=== PATIENT | female | born 1990 | race Caucasian/White ===

== ENCOUNTER → 2019-12-12 | Outpatient (CLI) | payer OTHER ==
--- NOTE | 2019-12-12 10:50 | Diagnostic Imaging Report ---
PROCEDURE: CT lumbar spine without contrast. TECHNIQUE: Multiple contiguous axial images were obtained through the lumbar spine without the use of intravenous contrast. Sagittal and coronal reformations were then performed. Auto Exposure Controls were utilized during the CT exam to meet ALARA standards for radiation dose reduction. INDICATION: Fall with low back pain. No relevant comparison. Reconstruction views reveal the lumbar statures to be normal and aligned anatomically. The pedicles and pars were intact and there was no acute or chronic fracture pattern. There is degenerative narrowing of the L5-S1 disc space with a diffuse posterior disc bulge as well as endplate osteophytes, which in conjunction with thickening of the ligament flava, result in moderate to severe central canal stenosis and relatively mild biforaminal narrowing. More mild diffuse annular degenerative bulging of the L4-L5 disc results in a borderline mild canal and mild foraminal stenosis. The remaining levels normal. The sacral alar and SI joints appeared nonacute. No paravertebral mass, hemorrhage or fluid collection. IMPRESSION: 1. No fracture or malalignment. There is lower lumbar spondylosis and facet arthrosis resulting in severe canal stenosis at L5-S1 without mild to moderate bi-foraminal narrowing. 2. No acute or posttraumatic sequelae however identified. Dictated by: Dictated on workstation # [id number]
== END ==
LOC: RAD FS 09:43
PROVIDERS: ATTEND Nurse Practitioner Family
DX: S39.92XA Unspecified injury of lower back, initial encounter (principal); M47.816 Spondylosis without myelopathy or radiculopathy, lumbar region; M48.07 Spinal stenosis, lumbosacral region; W19.XXXA Unspecified fall, initial encounter
CPT/HCPCS: 72131

== ENCOUNTER 2020-08-06 06:26 | Outpatient (RCR) | payer OTHER ==
[~2020-08-06] VITALS: Ht 170.2 cm; Wt 97.3 kg
[2020-08-06] MEDS ORDERED: CLON0.5T PO (12:51)
[2020-08-06] MEDS ORDERED: CITA40TA19 PO (13:10)
[2020-08-06] MEDS ORDERED: PANT20TA2 PO (13:10)
[2020-08-06] MEDS ORDERED: LEVO112C4 PO (13:10)
== END 2020-08-06 14:18 | disposition home or self-care (01) ==
LOC: PREOP 06:26
PROVIDERS: ATTEND Obstetrics & Gynecology
DX: Z01.812 Encounter for preprocedural laboratory examination (principal); N93.9 Abnormal uterine and vaginal bleeding, unspecified; N92.0 Excessive and frequent menstruation with regular cycle

== ENCOUNTER 2020-08-13 07:51 | Day surgery (SDC) | payer OTHER ==
[2020-08-13] VITALS (11 sets, daily range): BP systolic 111–129; BP diastolic 59–86
[~2020-08-13] VITALS: Ht 170 cm; Wt 97.3 kg
[~2020-08-13 07:51] MED LIST: CITA40TA19 PO; CLON0.5T PO; LEVO112C4 PO; PANT20TA2 PO
[2020-08-13] MEDS ORDERED: ceFAZolin 2 GM IV Premixed 50 ML IV ONE (08:15)
[2020-08-13] MEDS ORDERED: metroNIDAZOLE 500MG/100ML IVPB 100 ML IV ONE (08:15)
[2020-08-13] MEDS ORDERED: CATHETER FLUSH 10 ML SYR IV PRN (08:30)
[2020-08-13 08:35] LABS: BASOPHILS % (AUTO) 1 % (0-10); EOSINOPHILS % (AUTO) 1 % (0-10); HEMATOCRIT 40 % (35-52); LYMPHOCYTES # (AUTO) 1.3 10^3/uL (1.0-4.0); LYMPHOCYTES % (AUTO) 28 % (12-44); MEAN CORPUSCULAR HEMOGLOBIN 29 pg (25-34); MEAN CORPUSCULAR HGB CONC 33 g/dL (32-36); MEAN CORPUSCULAR VOLUME 89 fL (80-99); MEAN PLATELET VOLUME 9.1 fL (9.0-12.2); MONOCYTES # (AUTO) 0.4 10^3/uL (0.0-1.0); MONOCYTES % (AUTO) 8 % (0-12); NEUTROPHILS # (AUTO) 2.9 10^3/uL (1.8-7.8); NEUTROPHILS % (AUTO) 63 % (42-75); PLATELET COUNT 278 10^3/uL (130-400); WHITE BLOOD COUNT 4.6 10^3/uL (4.3-11.0)
[2020-08-13] MEDS ORDERED: ONDANSETRON 4 MG/2 ML (SDV) Z0FRAN ONE ×3 (08:35→13:26)
[2020-08-13] MEDS: LACTATED RINGERS 1,000 ML IV PRN ×3 (08:35→12:37)
[2020-08-13] MEDS ORDERED: FAMOTIDINE 20MG/2ML IV (PEPCID) ONE (08:36)
[2020-08-13] MEDS ORDERED: ONDANSETRON 4 MG/2 ML (SDV) Z0FRAN IVP ONE (08:45)
[2020-08-13] MEDS ORDERED: FAMOTIDINE 20MG/2ML IV (PEPCID) IVP ONE (08:45)
[2020-08-13] MEDS ORDERED: SEVOFLURANE (ULTANE) 15 ML INHAL SOLN ONE ×6 (10:52→13:03)
[2020-08-13] MEDS ORDERED: LIDOCAINE PF 2% 5 ML (XYLOCAINE) VIAL ONE (10:52)
[2020-08-13] MEDS ORDERED: MIDAZOLAM 2 MG/2 ML (VERSED) VIAL ONE (10:52)
[2020-08-13] MEDS ORDERED: proPOfol 200 MG/20 ML (DIPRIVAN) VIAL IV ONE (10:52)
[2020-08-13] MEDS ORDERED: ROCURONIUM 10 MG/ML 5 ML SYRINGE IV ONE (10:52)
[2020-08-13] MEDS ORDERED: fentaNYL INJECTION 100 MCG/2 ML AMP ONE (10:52)
[2020-08-13] MEDS ORDERED: BUPIVACAINE 0.25% 30 ML (SENSORCAINE) VIAL ONE (11:13)
[2020-08-13] MEDS ORDERED: SIMETHICONE 80 MG (MYLICON) CHEW PO PRN (11:15)
[2020-08-13] MEDS ORDERED: ZOLPIDEM 5 MG (AMBIEN) TAB PO PRN (11:15)
[2020-08-13] MEDS ORDERED: LACTATED RINGERS 1,000 ML IV SCH (11:15)
[2020-08-13] MEDS ORDERED: CHLORASEPTIC LOZENGE MM PRN (11:15)
[2020-08-13] MEDS ORDERED: DOCUSATE SODIUM 100 MG (COLACE) CAP PO PRN (11:15)
[2020-08-13] MEDS ORDERED: ANTACID SUSP 30 ML UDC (MYLANTA) PO PRN (11:15)
[2020-08-13] MEDS ORDERED: ONDANSETRON 4 MG/2 ML (SDV) Z0FRAN IV PRN (11:15)
[2020-08-13] MEDS ORDERED: HYDROmorphone 2 MG/ML VIAL (DILAUDID) IV ONE (13:30)
[2020-08-13] MEDS ORDERED: morphine INJ 10 MG/ML 1ML (SYR OR VIAL) IVP ONE (13:30)
[2020-08-13] MEDS: ONDANSETRON 4 MG/2 ML (SDV) Z0FRAN IVP PRN ×2 (13:31→14:35)
[2020-08-13] MEDS ORDERED: KETOROLAC 30 MG/ML VIAL ONE (14:02)
[2020-08-13] MEDS: KETOROLAC 30 MG/ML VIAL IV PRN ×2 (14:07→20:39)
--- NOTE | 2020-08-13 18:11 | OPERATIVE REPORT ---
DATE OF SERVICE: PREOPERATIVE DIAGNOSIS: A 30-year-old female with abnormal uterine bleeding refractory to medical management. PREOPERATIVE DIAGNOSIS: A 30-year-old female with abnormal uterine bleeding refractory to medical management. PROCEDURE: Robotic-assisted total laparoscopic hysterectomy with bilateral salpingectomy. SURGEON: Godwin Mancini DO FILTER TANK TENDER HELPER HEAD: Marysol Chavez DNP, who was necessary for manipulation and retraction throughout the procedure. ANESTHESIA: General. ESTIMATED BLOOD LOSS: Minimal. URINE OUTPUT: 350 mL clear at the end of the procedure. FLUIDS: 2100 mL lactated Ringer's solution. FINDINGS: Mild serosal adhesions of the uterus; otherwise, it was hyperemic and slightly bulky, but grossly normal otherwise bilateral normal appearing fallopian tubes and ovaries, normal appearing external female genitalia. SPECIMEN SENT: Uterus, bilateral fallopian tubes. INDICATIONS FOR PROCEDURE: This 30-year-old female is a patient who was a consultation in my office for ongoing issues with heavy painful periods that have continued to occur despite conservative management. She had been on oral contraceptive pills, Depo-Provera, has had two IUDs be dispelled during the timeframe of trying to treat this heavy bleeding. She does not desire any further childbearing and does not had a tubal sterilization and prefer not to attempt an endometrial ablation due to its potential for failure rate. She is frustrated and wishes to proceed with robotic hysterectomy. Risks of the procedure were discussed with the patient in detail. After all of her questions were answered and a consent was obtained in the preoperative area and the patient was taken to the operating room. OPERATIVE REPORT IN DETAIL: Once in the operating room, general anesthesia was found to be adequate, placed in dorsal lithotomy position, prepped and draped in normal sterile fashion where a timeout was performed. Bedoya catheter was placed using sterile technique. A weighted speculum was inserted into the patient's vagina. A right angle retractor was used to visualize the cervix, which was grasped at 12 o'clock position using a long Allis clamp. I then placed an 0 Vicryl suture through the anterior lip of the cervix and gently sound the uterine cavity depth using a uterine sound and found to be 8 cm. Using the suture now as my retraction point on the cervix, I placed a Sandra uterine manipulator to a depth of 8 cm with a 3.5 cm colpotomy ring. The manipulator tip was advanced into the cervix, the balloon was deployed and the colpotomy ring was advanced around the vaginal fornix. I removed all the other instruments from the patient's vagina, performed a change of gloves and took my attention to the abdomen where infraumbilically I infiltrated this area using 0.25% Marcaine to make an 8 mm incision with a knife and directed Veress needle through the incision until intraperitoneal placement was confirmed using saline drop test. An opening pressure of 2 mmHg was noted. I proceeded to maximum pressure of 15 mmHg, at which point I removed the Veress needle and introduced an 8 mm blunt laparoscopic da Anthony camera trocar. Once this was in place, I am able to confirm intraperitoneal placement using the da Anthony laparoscope. I then had the patient placed in steep Trendelenburg after briefly scanning the upper abdominal anatomy appears to be grossly normal. Once in steep Trendelenburg, I placed the two lateral trocars. These were both 8 mm trocars approximately 8 cm lateral to my infraumbilical trocar. Once these were both in place under direct visualization and laparoscope by bringing the da Anthony robot and docked in appropriate fashion placing the vessel sealer in the left hand and monopolar medina in the right hand, I performed the following dissection bilaterally starting at the uteroovarian ligament, I bipolar cauterized and transected using vessel sealer. I then created a window in the mesosalpinx. I bipolar cauterized and transected down the mesosalpinx amputating the fallopian tube from its surrounding blood supply. I then grasped the round ligament, which I bipolar cauterized and transected using vessel sealer. I then grasped the entire broad ligament, which I bipolar cauterized and transected using vessel sealer down to the level of the lower uterine segment, at which point I the anterior and posterior leaflets of the broad ligament, anterior leaflet was taken around the anterior vaginal fornix, posterior leaflet was taken around to the posterior vaginal fornix. This allows me to skeletonize the uterine vessels laterally, which I then bipolar cauterized and transected using the vessel sealer. I then created a colpotomy at 12 o'clock position using monopolar medina and took this circumferentially around the vaginal fornix amputating the cervix away from the vagina. I then removed the entire cervix, uterus, bilateral fallopian tubes through the vagina. I proceeded with closing the lateral vaginal apices and the vaginal cuff using 2-0 Vicryl suture in a [id number] fashion colposuspending them to the uterosacral ligaments. I then closed the remainder of the vaginal cuff using 2-0 V-Loc in a running fashion, after which there was no active bleeding noted from any of my dissection planes. I then undocked the da Anthony robot and proceeded with remainder of the case laparoscopically and copiously irrigated the pelvis using normal saline. Once again, there was no active bleeding noted from any of my dissection planes. I placed Surgiflo hemostatic agent over all my planes of dissection to ensure excellent postoperative hemostasis. I then had the patient taken out of steep Trendelenburg where I removed the lateral trocars under direct visualization of laparoscope. The infraumbilical trocar was left in place to release insufflation and to introduce 10 mL of 0.25% Marcaine into the peritoneal cavity for postoperative pain management. I then removed this trocar as well. The skin was reapproximated using 4-0 Monocryl interrupted subcuticular stitches. Dermabond was applied to the incision and sterile dressings were adhesed over the incisions as well. Bedoya catheter was left in place. The patient tolerated the procedure well and was taken to recovery area in stable condition. Lap and sponge counts were correct at the end of procedure. Instrument counts correct as well. Two grams of Ancef, 500 mg of Flagyl were given preoperatively for infection prophylaxis. Job ID: [id number] DocumentID: [id number] Dictated Date: 08/13/2020 13:15:26 Cafeteria Director Date: 08/13/2020 18:10:58 Dictated By: GODWIN MANCINI DO
[2020-08-13] MEDS: HYDROcodone/APAP 7.5 MG/325 MG (LORTAB, LORCET PLUS) TABLET PO PRN (18:29)
[2020-08-14] MEDS: HYDROcodone/APAP 7.5 MG/325 MG (LORTAB, LORCET PLUS) TABLET PO PRN (00:02)
[2020-08-14 01:50] VITALS: BP_SYST 104; BP_SYST 118; BP_DIAS 59; BP_DIAS 67
[2020-08-14] MEDS: KETOROLAC 30 MG/ML VIAL IV PRN (03:35)
[2020-08-14] MEDS ORDERED: IBUPROFEN 600 MG (MOTRIN) TAB PO SCH (03:45)
[2020-08-14 05:43] VITALS: BP 108/67
[2020-08-14 08:00] VITALS: BP 111/63
--- NOTE | 2020-08-14 12:37 | Anesthesia-General Post-Op ---
General Patient Condition Mental Status/LOC: Same as Preop Cardiovascular: Satisfactory Nausea/Vomiting: Absent Respiratory: Satisfactory Pain: Controlled Complications: Absent Post Op Complications Complications None Follow Up Care/Instructions Patient Instructions None needed. Anesthesia/Patient Condition Patient Condition Patient was seen yesterday after the procedure and this morning in postop rounds and she was doing well, no complaints, stable vital signs, no apparent adverse anesthesia problems. She is already discharged to home. BRAN ROQUE DO Aug 14, 2020 12:37
== END 2020-08-14 11:05 | disposition home or self-care (01) ==
LOC: SDC 07:51 → WS 15:00 → SDC 08-14 11:05
PROVIDERS: ATTEND Obstetrics & Gynecology
DX: N80.0 Endometriosis of uterus (principal); N93.9 Abnormal uterine and vaginal bleeding, unspecified; N92.0 Excessive and frequent menstruation with regular cycle; N94.5 Secondary dysmenorrhea; F32.9 Major depressive disorder, single episode, unspecified; K21.9 Gastro-esophageal reflux disease without esophagitis; Z79.899 Other long term (current) drug therapy; Z88.5 Allergy status to narcotic agent; Z83.3 Family history of diabetes mellitus
CPT/HCPCS: 36415; 84703; 85025; 86850; 86900; 86901; 87081; 88307